=== PATIENT | female | born 1975 | race Caucasian/White ===

== ENCOUNTER → 2019-06-01 07:00 | Outpatient (CLI) | payer OTHER, SELFPAY ==
--- NOTE | 2019-06-01 06:58 | BI_ITS ---
MAMMOGRAPHY - BILATERAL SCREENING REASON FOR EXAM: Female, 43 years old. Routine annual screening examination. PERTINENT HISTORY: Non-contributory. TECHNIQUE: Digital bilateral breast matthew (3D mammographic acquisition) in the CC and MLO projections. 2-D mediolateral oblique (MLO) and craniocaudad (CC) views of both breasts were obtained. CAD: Full Field Digital Mammography with Computer Added Detection was performed. COMPARISON: Comparison is made with prior study dated March 18, 2017 and February 21, 2015. FINDINGS: Breast Composition: The breasts are heterogeneously dense, which may obscure small masses. There are no dominant masses or suspicious calcifications. No other significant abnormalities are identified. There has been no significant change since the prior study. BI/SCREEN MAMM (CAD) W/MATTHEW BILAT IMPRESSION: Stable bilateral screening mammogram. Yearly follow-up mammogram recommended. (A) ASSESSMENT CATEGORY: BIRADS Category 1: Negative. A letter regarding these results will be sent to the patient by the facility within 30 days. Approximately 10% of breast cancers are not detected by mammography. A normal mammogram should not delay biopsy of a clinically suspicious abnormality. [id number] Electronically Signed: Alfredo Boggs, at 8:45 EDT , Service support ,
== END ==
PROVIDERS: Family Provider Family Medicine; PCP Family Medicine; Referring Provider Family Medicine; Visit Provider Family Medicine
DX: Z12.31 Encounter for screening mammogram for malignant neoplasm of breast (principal)
CPT/HCPCS: 77063; 77067

== ENCOUNTER → 2020-10-10 13:51 | Outpatient (CLI) | payer OTHER, SELFPAY ==
[2020-07-26 11:50] VITALS: BMI 30.1
--- NOTE | 2020-10-10 13:53 | BI_ITS ---
MAMMOGRAPHY - BILATERAL SCREENING REASON FOR EXAM: Female, 45 years old. Routine annual screening examination. PERTINENT HISTORY: Non-contributory. TECHNIQUE: Digital bilateral breast matthew (3D mammographic acquisition) in the CC and MLO projections. 2-D mediolateral oblique (MLO) and craniocaudad (CC) views of both breasts were obtained. CAD: Full Field Digital Mammography with Computer Added Detection was performed. COMPARISON: Comparison is made with prior examination dated 06/01/2019 and 03/18/2017. FINDINGS: Breast Composition: The breasts are heterogeneously dense, which may obscure small masses. There are no dominant masses or suspicious calcifications. Stable small benign appearing bilateral axillary lymph nodes. No other significant abnormalities are identified. There has been no significant change since the prior study. BI/SCRN MAMM (CAD)W/MATTHEW BILAT IMPRESSION: Stable bilateral screening mammogram. Yearly follow-up mammogram recommended. (A) ASSESSMENT CATEGORY: BIRADS Category 2: Benign. A letter regarding these results will be sent to the patient by the facility within 30 days. Approximately 10% of breast cancers are not detected by mammography. A normal mammogram should not delay biopsy of a clinically suspicious abnormality. [id number] Electronically Signed: Alfredo Boggs MD at 15:00 EST , Service support ,
== END ==
PROVIDERS: PCP Family Medicine; Referring Provider Family Medicine; Visit Provider Family Medicine
DX: Z12.31 Encounter for screening mammogram for malignant neoplasm of breast (principal)
CPT/HCPCS: 77063; 77067

== ENCOUNTER 2020-11-24 12:41 | Outpatient (RCR) | payer OTHER, SELFPAY ==
[2020-07-26 11:50] VITALS: BMI 30.1
== END 2021-02-06 23:59 ==
LOC: IMMUN 12:41
PROVIDERS: PCP Family Medicine; Referring Provider Family Medicine; Visit Provider Family Medicine
DX: Z23 Encounter for immunization (principal)
CPT/HCPCS: 0001A; 0002A; 91300

== ENCOUNTER → 2022-07-17 | Outpatient (CLI) | payer OTHER, SELFPAY ==
--- NOTE | 2022-07-17 09:06 | BI_ITS ---
MAMMOGRAPHY - BILATERAL SCREENING REASON FOR EXAM: Female, 46 years old. Routine annual screening examination. PERTINENT HISTORY: Non-contributory. TECHNIQUE: Digital bilateral breast matthew (3D mammographic acquisition) in the CC and MLO projections. 2-D mediolateral oblique (MLO) and craniocaudad (CC) views of both breasts were obtained. CAD: Full Field Digital Mammography with Computer Added Detection was performed. COMPARISON: Comparison is made with prior study dated 10/10/2020 and 06/01/2019. FINDINGS: Breast Composition: The breasts are heterogeneously dense, which may obscure small masses. There are no dominant masses or suspicious calcifications. Stable small benign-appearing bilateral axillary lymph nodes. No other significant abnormalities are identified. There has been no significant change since the prior study. BI/SCRN MAMM (CAD)W/MATTHEW BILAT IMPRESSION: Stable bilateral screening mammogram. Yearly follow-up mammogram recommended. (A) ASSESSMENT CATEGORY: BIRADS Category 2: Benign. A letter regarding these results will be sent to the patient by the facility within 30 days. Approximately 10% of breast cancers are not detected by mammography. A normal mammogram should not delay biopsy of a clinically suspicious abnormality. [id number] Electronically Signed: Alfredo Boggs MD at 9:57 EST ,
== END | disposition home or self-care (01) ==
LOC: OPBI 09:04
PROVIDERS: PCP Family Medicine; Visit Provider Family Medicine
DX: Z12.31 Encounter for screening mammogram for malignant neoplasm of breast (principal)
CPT/HCPCS: 77063; 77067

== ENCOUNTER → 2023-01-23 | Outpatient (CLI) | payer OTHER, SELFPAY ==
--- NOTE | 2023-01-23 12:36 | RAD_ITS ---
INDICATION: FLANK PAIN, KIDNEY STONE EXAMINATION/TECHNIQUE: X-RAY - XR Abdomen 1 View COMPARISON: July 23, 2014 CT. August 15, 2014 abdominal radiograph FINDINGS: BOWEL GAS PATTERN: Nonspecific non-obstructive bowel gas pattern. No focal stomach or bowel distention. Large colonic stool burden. FREE AIR: Not well assessed on a supine view. ORGANOMEGALY: Not seen. CALCIFICATIONS: 2 mm calcified density projects left of midline at L4-L5, possibly phlebolith or ureteral stone. Multiple pelvic phleboliths.. LOWER CHEST: No acute pathology. BONES AND SOFT TISSUES: Presumed partial lumbarization of S1 with left S1-S2 pseudarthrosis.Tubal ligation clips shifting from right pelvis to the left lower abdomen. Multiple pelvic phleboliths.. RAD/Abdomen Single View IMPRESSION: 2 mm calcification at left L4-5 which could represent tiny ureteral stone or new phlebolith. CT could further localize clinically indicated. Large colonic stool burden as can be seen with constipation. Electronically Signed: Sawyer Atkinson MD at 5:36 EDT ,
== END | disposition home or self-care (01) ==
LOC: MTRAD 12:33
PROVIDERS: PCP Family Medicine; Referring Provider Family Medicine; Visit Provider Family Medicine
DX: R10.9 Unspecified abdominal pain (principal); R31.9 Hematuria, unspecified
CPT/HCPCS: 74018

== ENCOUNTER → 2023-04-23 | Outpatient (CLI) | payer OTHER, SELFPAY ==
--- NOTE | 2023-04-23 12:33 | RAD_ITS ---
STUDY: X-RAY - ABDOMEN/PELVIS REASON FOR EXAM: Female, 47 years old. Abdominal pain. TECHNIQUE: Single AP view of the abdomen / pelvis on 2 images. COMPARISON: Abdominal x-ray dated January 23, 2023. FINDINGS: Normal visualized lung bases. Normal bowel gas pattern with air seen to the rectosigmoid. No disproportionate dilatation of bowel or free intra-abdominal air. The visualized liver, spleen and kidneys are grossly normal in size and morphology. Phleboliths and clips in the left side of the pelvis. Normal visualized osseous structures. RAD/Abdomen Single View IMPRESSION: Stable abdominal x-ray with no acute pathology. Electronically Signed: Fidel Robins MD at 12:30 EDT ,
== END | disposition home or self-care (01) ==
PROVIDERS: PCP Family Medicine; Referring Provider Family Medicine; Visit Provider Family Medicine
DX: R10.9 Unspecified abdominal pain (principal)
CPT/HCPCS: 74018

== ENCOUNTER → 2024-11-15 | Outpatient (CLI) | payer OTHER, SELFPAY ==
--- NOTE | 2024-11-15 12:34 | BI_ITS ---
EXAM: SCRN MAMM (CAD)W/MATTHEW BILAT DATE: 11/15/2024 CLINICAL HISTORY: F, Age 49 y/o , SCREENING. No family history. BREAST CANCER RISK ASSESSMENT: Not assessed. TECHNIQUE: Bilateral screening digital breast tomosynthesis with 2D and 3D images. Computer aided detection. COMPARISON: Prior exam(s) dating back to July 17, 2022.. FINDINGS: Bilateral Breast Mammographic Findings: No significant masses, calcifications or other abnormalities are identified. TISSUE DENSITY: The breast tissue is heterogenously dense, which may obscure small masses. Stable benign-appearing bilateral axillary lymph nodes. BI/SCRN MAMM (CAD)W/MATTHEW BILAT IMPRESSION: Normal interval followup mammograms are recommended in 12 months. A letter with findings and recommendations will be mailed to the patient. ASSESSMENT: BIRADS 2 BENIGN FINDING RECOMMENDATION: 1: ROUTINE ANNUAL FOLLOW-UP Bilateral in 1 Year Reading Location: [place] [id number]
== END | disposition home or self-care (01) ==
PROVIDERS: PCP Family Medicine; Referring Provider Family Medicine; Visit Provider Family Medicine
DX: Z12.31 Encounter for screening mammogram for malignant neoplasm of breast (principal)
CPT/HCPCS: 77063; 77067

== ENCOUNTER → 2025-05-04 | Outpatient (CLI) | payer OTHER, SELFPAY ==
[2025-05-08 09:08] LABS: HPV APTIMA, High Risk Negative (Negative)
== END | disposition home or self-care (01) ==
LOC: LABSPEC 14:50
PROVIDERS: PCP Family Medicine; Visit Provider Nurse Practitioner Family
DX: Z12.4 Encounter for screening for malignant neoplasm of cervix (principal)
CPT/HCPCS: 87624; 88175; G0145

== ENCOUNTER → 2025-07-11 | Outpatient (CLI) | payer OTHER, SELFPAY ==
--- NOTE | 2025-07-11 16:07 | RAD_ITS ---
PROCEDURE: ABDOMEN SINGLE VIEW 07/11/2025 REASON FOR EXAM: KUB-ABDOMINAL PAIN-ASSESS STOOL BURDEN TECHNIQUE: Procedure Code: RADABD Modality: DX Procedure: ABDOMEN SINGLE VIEW COMPARISON: None FINDINGS: There is a nonobstructive bowel gas pattern with a moderate stool load. There is a 1.8 cm calcification overlying the right renal shadow. Phleboliths are present in the pelvis. Surgical clips are noted. RAD/Abdomen Single View IMPRESSION: Nonobstructive bowel gas pattern. Right nephrolithiasis. Reading Location: [facility]
== END | disposition home or self-care (01) ==
LOC: MTRAD 16:06
PROVIDERS: PCP Family Medicine; Referring Provider Nurse Practitioner Family; Visit Provider Nurse Practitioner Family
DX: R10.9 Unspecified abdominal pain (principal)
CPT/HCPCS: 74018